=== PATIENT | female | born 1980 | race African-American/Black ===

== ENCOUNTER 2016-09-28 18:03 | Emergency (ER) | payer OTHER ==
--- NOTE | ~2016-09-28 | CR282 ---
[facility] A Service of [facility] RADIOLOGY TEXT RESULTS PATIENT: MALISSA STEWARD LOCATION: CFTX : 80 UNIT #: [id number] AGE: [address]: Shelby Kong APRN SEX: F ORDER DR: [id number] [facility] [address] [place], [place] [address] [id number] E MR#: [id number] Acc #: [id number] NAME: MALISSA STEWARD : 1980 SEX: F STUDY DATE/TIME: 09/28/2016 18:55 UNIT: [facility] ROOM: STUDY DESCRIPTION: CR Wrist Min 3 View Rt Attending Physician: Shelby Kong A.P.R.N. Ordering Physician: Ed Doctor [id number] [facility] Primary Care Physician: [facility] MEDICAL IMAGING REPORT This report is preliminary unless electronic signature is present EXAM Right wrist 3 views HISTORY Wrist pain for 3 days after crush injury. FINDINGS Wrist evaluation in multiple projections shows normal mineralization of the bony structures about the wrist and satisfactory articular relationship of the radius and ulna to the proximal carpal row and of the distal carpal segments to the metacarpal bases. There is no indication of fracture or dislocation, and no soft tissue radiopaque foreign body is present. No congenital defects are apparent. IMPRESSION Normal wrist. Dictated by... Faheem Newberry M.D. THIS IS AN ELECTRONICALLY VERIFIED REPORT Faheem Newberry M.D. at 09/29/2016 11:30 PM JOSE R/manolo TD: 09/29/2016 01:25 JOB #: [id number] MEDICAL IMAGING REPORT Page 1 of 1 COPY
== END 2016-09-28 20:00 | disposition home or self-care (01) ==
LOC: CED 18:03 → CFTX 18:03
DX: S60.211A Contusion of right wrist, initial encounter (principal); W22.8XXA Striking against or struck by other objects, initial encounter; Y92.009 Unspecified place in unspecified non-institutional (private) residence as the place of occurrence of the external cause
CPT/HCPCS: 29125; 73110; 99283

== ENCOUNTER 2016-09-30 23:58 | Emergency (ER) | payer OTHER | END 2016-10-01 02:30 | disposition home or self-care (01) | LOC: CED 23:58 | DX: B35.4 Tinea corporis (principal); C53.9 Malignant neoplasm of cervix uteri, unspecified; F17.210 Nicotine dependence, cigarettes, uncomplicated | CPT/HCPCS: 99282 ==